=== PATIENT | male | born 1945 ===

== ENCOUNTER → 2022-02-05 | Outpatient (CLI) | payer SELFPAY ==
[2022-02-05 11:25] LABS: Creatinine Urine 78.1 mg/dL (27.00-270.00); Microalbumin, Urine Quant. 58.4 mg/L (0.000-20.000); Protein, Urine Quantitative 15.3 mg/dL (0.0-11.9)
== END | disposition home or self-care (01) ==
LOC: LAB SHORT 06:00 → LAB 06:00
PROVIDERS: Internal Medicine Nephrology
DX: N18.30 Chronic kidney disease, stage 3 unspecified (principal); D63.1 Anemia in chronic kidney disease
CPT/HCPCS: 81050; 82043; 82570; 84156